=== PATIENT | male | born 1955 | race Caucasian/White ===

== ENCOUNTER 2022-08-25 12:55 | Outpatient (CLI) | payer BC | END 2022-08-25 12:56 | disposition home or self-care (01) | LOC: SCSMRI 12:55 | PROVIDERS: ATTEND Otolaryngology Plastic Surgery within the Head & Neck | DX: H90.3 Sensorineural hearing loss, bilateral (principal); I67.82 Cerebral ischemia | CPT/HCPCS: 70553; 82565 ==